=== PATIENT | female | born 1980 | race Two or more races ===

== ENCOUNTER 2022-12-29 20:42 | Emergency (ER) | payer BC, OTHER ==
[~2022-12-29] VITALS: Ht 154.9 cm; Wt 72.7 kg
[2022-12-29 22:57] VITALS: BP 114/68; PULSE 78; RESP 16; TEMP 98.5; O2SAT 99
[2022-12-29] MEDS ORDERED: IBUPROFEN 800 MG TAB PO ONE (23:00)
== END 2022-12-30 02:33 | disposition home or self-care (01) ==
LOC: ER 20:42
DX: M54.2 Cervicalgia (principal); M25.511 Pain in right shoulder; M79.671 Pain in right foot; V28.49XA Other motorcycle driver injured in noncollision transport accident in traffic accident, initial encounter; Y93.89 Activity, other specified; Y92.89 Other specified places as the place of occurrence of the external cause; Y99.8 Other external cause status
CPT/HCPCS: 70450; 72070; 72100; 72125